=== PATIENT | male | born 1960 | race Caucasian/White ===

== ENCOUNTER 2017-12-30 05:43 | Observation (INO) | payer MEDICARE ==
[2017-12-29 09:14] VITALS: BMI 35.2
[2017-12-30] MEDS ORDERED: Ondansetron HCl/PF 4 MG/2 ML Vial ONE ×2 (06:07→14:35)
[2017-12-30] MEDS ORDERED: Fentanyl 250 MCG/5 ML VIAL ONE (06:07)
[2017-12-30] MEDS ORDERED: Midazolam HCl 2 mg/2 ml Vial ONE (06:07)
[2017-12-30] MEDS ORDERED: Lidocaine 2% Jelly 5 ML TUBE ONE (06:08)
[2017-12-30] MEDS ORDERED: CEFAZOLIN/Water 2 GM/20 ML SYRINGE ONE (06:15)
[2017-12-30] MEDS ORDERED: Thrombin 5000 UNITS/5 ML VIAL ONE (06:17)
[2017-12-30] MEDS ORDERED: Bupivacaine HCl 0.5%/Epinephrine 1:200,000/PF 30 ml Vial ONE (06:17)
[2017-12-30] MEDS ORDERED: Sodium Chloride 0.9% 20 ML ONE (06:17)
[2017-12-30 06:25] LABS: Hemoglobin 15.2 g/dL (14.0-18.0); Mean Corpuscular HGB CONC 34.4 g/dL (32.0-36.0); Mean Corpuscular Hemoglobin 31.6 pg (27.0-31.0); Platelet Count 161 thou/uL (130-400); RBC Distribution Width 11.3 % (11.5-14.5); Red Blood Cell (RBC) Count 4.82 mill/uL (4.70-6.10); White Blood Cell (WBC) Count 5.4 thou/uL (4.8-10.8)
[2017-12-30 06:31] LABS: INR-International Normal Ratio 0.9; PTT 25.7 SEC (22.9-36.1); Prothrombin Time 12.5 SEC (12.0-14.7)
[2017-12-30] MEDS ORDERED: tiZANidine HCl 4 MG TAB PO PRN (09:58)
[2017-12-30] MEDS ORDERED: Milk Of Magnesia 30 ML UDCUP PO PRN (09:58)
[2017-12-30] MEDS ORDERED: Ondansetron HCl/PF 4 MG/2 ML Vial IVP PRN ×2 (09:58→10:58)
[2017-12-30] MEDS ORDERED: Promethazine HCl 25 MG/ML VIAL IM PRN (09:58)
[2017-12-30] MEDS ORDERED: Promethazine HCl 12.5 MG SUPP PR PRN (09:58)
[2017-12-30] MEDS ORDERED: Promethazine 25 MG TAB PO PRN (09:58)
[2017-12-30] MEDS ORDERED: Morphine 4 MG/ML VIAL SLOW IVP PRN ×2 (09:58)
[2017-12-30] MEDS ORDERED: Bisacodyl 10 MG SUPP PR PRN (09:58)
[2017-12-30] MEDS ORDERED: Acetaminophen/Codeine 30-300mg Tablet PO PRN (09:58)
[2017-12-30] MEDS ORDERED: Fentanyl 100 MCG/2 ML VIAL ONE ×3 (10:07→11:09)
[2017-12-30] MEDS ORDERED: Tamsulosin HCl 0.4 MG CAP ONE (10:52)
[2017-12-30] MEDS ORDERED: Promethazine HCl 25 MG/ML VIAL IM/IV PRN (10:58)
[2017-12-30] MEDS ORDERED: HYDROmorphone 2 MG/ML VIAL SLOW IVP PRN (10:58)
[2017-12-30] MEDS ORDERED: Non-Formulary Medication 1 EACH PO PRN (10:58)
[2017-12-30] MEDS: Acetaminophen/Codeine 30-300mg Tablet PO PRN ×3 (12:03→21:37)
--- NOTE | 2017-12-30 12:37 | HP ---
REASON FOR ADMISSION: Here for spine surgery. HISTORY OF PRESENT ILLNESS: Mr. Martinez is a 57-year-old gentleman, who came to our office in referr al for neurogenic claudication and he is unable to walk more than 100 feet without bilateral leg pain and the pain went away when bending forward or sitting down. His MRI scan showed significant lumbar stenosis. We offered him a laminectomy. He is here to proceed with that surgery today. PAST MEDICAL HISTORY: Hypertension and hypercholesterolemia. PAST SURGICAL HISTORY: Appendectomy, neck surgery in 2001, and knee surgery. ADMISSION MEDICATIONS: Baby aspirin held for 1 week, Pristiq, pravastatin sodium, Celebrex, lisinopr il, lamotrigine, ropinirole, zolpidem, and baclofen. ALLERGIES: No known drug allergies. SOCIAL HISTORY: The patient denies drug and alcohol use. He is . He is retired, lives with his family. FAMILY HISTORY: His father is . His mother is alive. The medical history is noncontributor y for this spine problem. ADMISSION PHYSICAL EXAMINATION: GENERAL: Mr. Martinez is awake in his preoperative room. His is conversant. NEUROLOGIC: His cranial nerves are working well. Alternating rapid motions are performed rapidly an d smoothly. There is no lateralizing motor or sensory deficits. There is good strength in the iliop soas, quadriceps, hamstrings, anterior tibia and EHL. There is no sensory deficit from L1-S1. There is some clonus and brisk reflexes has been expected (due to previous neck surgery). ASSESSMENT: Neurogenic claudication from 3-level lumbar stenosis. PLAN: Lumbar laminectomy and foraminotomies. Following surgery, we will use aggressive mobilization and when he is safe for activities of daily living, he can be discharged.
[2017-12-30] MEDS: Cyclobenzaprine 10 MG TAB PO PRN ×2 (13:17→21:34)
--- NOTE | 2017-12-30 14:26 | OP ---
DATE OF PROCEDURE: 12/30/2017. SURGEON: Cate Ardon M.D. TUBE REPAIRER: DANTE Irvin. PREOPERATIVE INDICATION: Prevent neurological deterioration. PREOPERATIVE DIAGNOSIS: Multilevel lumbar stenosis with neurogenic claudication. POSTOPERATIVE DIAGNOSIS: Multilevel lumbar stenosis with neurogenic claudication. OPERATIVE PROCEDURE: Decompressive laminectomy, medial facetectomy, foraminotomy, L2-L3, L3-L4, L4-L 5. PREOPERATIVE MEDICATION: Ancef 2 grams IV. DRAIN NUMBER: Zero. DRAIN TYPE: None. OPERATIVE DICTATION: The patient was brought to the operating room. General endotracheal anesthesia was induced. The patient was positioned prone on the operating table with his chest and hips suppor yan by gel-filled chest rolls. A lateral fluoro radiograph was used to plan our incision. The lumba r skin was sterilely prepped and draped. We opened with a 10 blade knife and controlled bleeding wit h bipolar and monopolar cautery. We used monopolar cautery to dissect through subcutaneous tissues t o the thoracodorsal fascia. We incised the fascia in the midline and reflected the paraspinal muscle s off the spinous process and lamina of L2, L3, L4, and L5. Self-retaining retractors were placed an d a lateral fluoro radiograph confirmed the levels upon which we were operating. We then used Adson and Kerrison rongeurs to fashion a laminectomy down the midline. We widened our laminectomy with Ker rison rongeurs until we were flush with the pedicles at L2, L3, L4, and L5. We performed foraminotom ies over the exiting nerve roots and made sure that at the completion of our decompression, we could pass a Xavier ball probe through the lateral recess and out the foramen with each of the nerve roots that we decompressed. We irrigated copiously with bacitracin irrigation. We waxed the bone edges. We controlled epidural bleeding with gentle bipolar cautery. We infused local anesthetic in the para spinal muscles. We closed the wound in anatomic layers and applied a sterile dressing. This was a c lean case and no contamination.
[2017-12-30] MEDS ORDERED: ePHEDrine/0.9% NaCl/PF SYRINGE 50 mg/10 ml ONE (14:35)
[2017-12-30] MEDS ORDERED: Lidocaine 1% PF 5 ML VIAL ONE (14:35)
[2017-12-30] MEDS ORDERED: Glycopyrrolate 0.2 MG/ML 5 ML SYRINGE ONE (14:35)
[2017-12-30] MEDS ORDERED: Dexamethasone 20 MG/5 ML VIAL ONE (14:35)
[2017-12-30] MEDS ORDERED: PROPOFOL 200 MG/20 ML VIAL ONE (14:35)
[2017-12-30] MEDS: Sodium Chloride 0.9% 1,000 ML IV SCH (15:27)
[2017-12-30] MEDS: CEFAZOLIN/Water 2 GM/20 ML SYRINGE SLOW IVP SCH ×2 (15:27→21:32)
[2017-12-31] MEDS ORDERED: Tamsulosin HCl 0.4 MG CAP PO SCH (06:00)
[2017-12-31] MEDS: Sodium Chloride 0.9% 1,000 ML IV SCH (06:13)
[2017-12-31] MEDS: CEFAZOLIN/Water 2 GM/20 ML SYRINGE SLOW IVP SCH (06:14)
[2017-12-31] MEDS: Acetaminophen/Codeine 30-300mg Tablet PO PRN ×2 (06:17→08:59)
[2017-12-31] MEDS: Cyclobenzaprine 10 MG TAB PO PRN (06:17)
[2017-12-31 08:04] VITALS: BP 117/70; TEMP 98.8
--- NOTE | 2017-12-31 10:27 | DIS ---
DATE OF ADMISSION: 12/30/2017 Mr. Martinez was admitted to [facility] by Dr. Ardon on 12/30/2017 in the postoperative p eriod. ADMISSION DIAGNOSIS: Status post lumbar laminectomy. DISCHARGE DIAGNOSIS: Status post lumbar laminectomy. He was subsequently discharged on 12/31/2017. Mr. Martinez's hospital course was not complicated by a ny significant problem. He had no consultations ordered while inpatient nor did he had any diagnosti c testing ordered. His pain was well tolerated and controlled with our typical comfort medications f or postoperative patient. He was discharged home in good condition with outpatient followup planned at 2 weeks.
== END 2017-12-31 09:23 | disposition home or self-care (01) ==
LOC: SDC 05:43 → 3SE 11:29
PROVIDERS: ADMIT Neurological Surgery; ATTEND Neurological Surgery
PROC: 01NB0ZZ Release Lumbar Nerve, Open Approach (ICD-10-PCS; principal; 2017-12-30)
DX: M48.062 Spinal stenosis, lumbar region with neurogenic claudication (principal); I10 Essential (primary) hypertension; E78.00 Pure hypercholesterolemia, unspecified; Z79.82 Long term (current) use of aspirin; Z79.899 Other long term (current) drug therapy
CPT/HCPCS: 63047; 63048 ×3; 76001; 85027; 85610; 85730; 96361; 96374 ×2; 96375; 96376 ×2; G0378; A4216; J0670; J1100; J2001; J2250; J2270; J2405; J2704; J3010; J3370; J3490